=== PATIENT | male | born 1985 | race Caucasian/White ===

== ENCOUNTER 2017-06-29 10:28 | Outpatient (CLI) | payer OTHER ==
[2017-06-29 13:16] LABS: Hematocrit 43.3 % (42.0-52.0); Mean Platelet Volume 6.7 fL (7.4-10.4); Red Blood Cell (RBC) Count 4.28 mill/uL (4.70-6.10); White Blood Cell (WBC) Count 9.5 thou/uL (4.8-10.8)
[2017-06-29 13:25] LABS: Bilirubin Negative (Negative); Blood, Urine Negative (Negative); Glucose, Urine (Dipstick) Negative (Negative); Ketone, Urine Negative (Negative); Nitrite Negative (Negative); Protein, Urine (Dipstick) Negative (Neg-Trace); Urobilinogen 0.2 mg/dL (0.2-1.0)
[2017-06-29 13:30] LABS: Bacteria/HPF None Seen HPF (None Seen); Hyaline Casts/LPF 0-3 HYALINE CAST LPF (0-3 Hyaline); RBC/HPF 0-3 HPF (0-3); Squamous Epithelial 0-3 HPF (0-3); WBC/HPF None Seen HPF (0-3)
[2017-06-29 13:40] LABS: PTT 30.5 SEC (22.9-36.1); Prothrombin Time 13.9 SEC (12.0-14.7)
[2017-06-29 13:42] LABS: Anion Gap 10 mmol/L (10-20); BUN (Urea Nitrogen) 15 mg/dL (8.9-20.6); Calc. Creatinine Clearance 0 mL/min (70-130); Calcium 9.4 mg/dL (7.8-10.44); Carbon Dioxide 30 mmol/L (22-29); Chloride 102 mmol/L (98-107); Estimated GFR-MDRD 88
== END 2017-06-29 10:29 | disposition home or self-care (01) ==
LOC: LABBT 10:28
PROVIDERS: ATTEND Urology
DX: Z01.818 Encounter for other preprocedural examination (principal); N49.2 Inflammatory disorders of scrotum
CPT/HCPCS: 80048; 81001; 85027; 85610; 85730; 87086

== ENCOUNTER 2017-07-01 05:47 | Day surgery (SDC) | payer OTHER ==
[2017-06-29 11:03] VITALS: BMI 43.5
[2017-07-01] MEDS ORDERED: Gentamicin 80 MG/2 ML VIAL ONE (06:58)
[2017-07-01] MEDS ORDERED: Bupivacaine 0.25% HCL 30 ML VIAL ONE (08:55)
[2017-07-01] MEDS ORDERED: Midazolam HCl 2 mg/2 ml Vial ONE (09:05)
[2017-07-01] MEDS ORDERED: Fentanyl 100 MCG/2 ML VIAL ONE ×2 (09:05→11:37)
[2017-07-01] MEDS ORDERED: Lidocaine 2% PF 10 ML AMP (For Epidural Use) ONE (09:32)
[2017-07-01] MEDS ORDERED: Propofol 200 MG/20 ML VIAL ONE (09:32)
--- NOTE | 2017-07-01 11:39 | OP ---
DATE OF PROCEDURE: 07/01/2017 SERVICE: Urology. SURGEON: Alexy Veliz M.D. PREOPERATIVE DIAGNOSIS: Scrotal abscess. POSTOPERATIVE DIAGNOSIS: Scrotal cellulitis with orchitis. PROCEDURE PERFORMED: Scrotal exploration and debridement of infected tissue. INDICATIONS FOR PROCEDURE: Rigo is a 32-year-old white male with Down's syndrome who initially pr esented to me approximately 2 weeks ago with scrotal cellulitis and significant induration of his sc rotal wall, testicle, and cord. He had initially been placed on Bactrim by his primary care physici an and then it had been switched to clindamycin for further antibiotic coverage as he was not respon ding. I recommended continuation of the clindamycin for at least a week or two to see if he would h ave improvement of his infection. The cellulitis did clear significantly on the surrounding scrotal skin, but he continued to have what looked like a fluid collection just under the skin. There was pus able to be expressed from this. As such, I felt that an I\T\D with removal of infected tissue w ould be in the patient's best interest to help expedite recovery and avoid possible Daniel's gangr don. The patient is a diabetic. Risks and benefits of the surgery were discussed with legal guardi ans who agreed to the procedure. DESCRIPTION OF PROCEDURE: After identification of armband and verification of consent, the patient was brought back to the operating room where he underwent general anesthesia with an LMA. He was th en placed in a dorsal lithotomy position and prepped and draped in the usual sterile fashion. After appropriate timeout, an incision was made just over the areas of maximum induration and fluctuance. There was actually a minimal amount of purulent tissue which was removed, but there was a signific ant amount of indurated tissue within the scrotal wall. There were pockets of purulence located in between these areas and the central area of the granulation tissue was necrotic with approximately 2 -3 mL of purulent fluid. This was cultured with a swab and sent for microbiology. I felt to expedi te the healing process as well as create a cavity to pack from wet to dry. It would be beneficial t o remove the granulation tissue. The skin was undermined and the granulation tissue was excised usi ng the Bovie electrocautery. Care was taken to try and avoid the spermatic cord as well as the test icle to avoid orchiectomy or spermatic cord removal at this time, although that may be a necessary s tep in the future. The granulation tissue is completely excised and all the inflammatory tissue yovani t was visible was removed leaving a cavity within the scrotum which would be easy to pack at a later point. A small injury was made to the tunica albuginea with exposed seminiferous tubules. This wa s closed using a 2-0 Vicryl and bringing over the surrounding the spermatic fascia on top. This was likely occurred secondary to the dense amount of inflammation and adherence of the tunica vaginalis and spermatic fascias and dartos tissues being all fused together with significant inflammation. U pipo completion, all hemostasis was achieved with electrocautery. The cord was uninjured and the avel ority of the testicle was intact. Again the cord and testicle are extremely indurated, but this may be inflammatory, rather than infectious. If this fails to resolve and the patient continues to have symptoms and pain, he may require later orchiectomy and spermatic cord removal which we will have t o be done at a later date. As of now, the area was washed copiously with peroxide and then irrigate d with normal saline. The cavity which created was packed with moist gauze and skin injected with 0 .25% Marcaine plain. A cord block was also performed with 0.25% Marcaine plain. The scrotal fluffs were then applied onto the surface and a jockstrap applied. The patient was then awakened and take n to PACU for recovery in stable condition. COMPLICATIONS: Small injury to the testicle with exposed seminiferous tubules which were repaired. Patient ultimately may require an orchiectomy, but for now, we are going to give him the best chanc e to try and keep his testicles unless they continue to remain inflamed or infected. ESTIMATED BLOOD LOSS: 75 mL. RETAINED TUBES AND DRAINS: None. SPECIMENS: Inflamed granulation and infected tissue sent for culture and routine pathology as well as culture swab sent for microbiology. DISPOSITION: The patient will be discharged home and follow up with me tomorrow for instruction for wound care teaching.
[2017-07-01] MEDS ORDERED: traMADol HCl 50 MG TAB ONE (13:29)
== END 2017-07-01 13:52 | disposition home or self-care (01) ==
LOC: SDC 05:47
PROVIDERS: ATTEND Urology
PROC: 0HBAXZZ Excision of Inguinal Skin, External Approach (ICD-10-PCS; principal; 2017-07-01)
DX: N49.2 Inflammatory disorders of scrotum (principal); Q90.9 Down syndrome, unspecified; E11.9 Type 2 diabetes mellitus without complications; I10 Essential (primary) hypertension; M10.9 Gout, unspecified; E07.9 Disorder of thyroid, unspecified; Z79.84 Long term (current) use of oral hypoglycemic drugs; Z79.899 Other long term (current) drug therapy; Z88.5 Allergy status to narcotic agent; Z88.8 Allergy status to other drugs, medicaments and biological substances; Z87.81 Personal history of (healed) traumatic fracture; Z82.3 Family history of stroke
CPT/HCPCS: 87070; 87076; 87077; 87186; 87205; 88304; 96374; J1580; J2001; J2250; J2704; J3010; S0020

== ENCOUNTER 2018-03-07 08:12 | Outpatient (CLI) | payer OTHER ==
[2018-03-07 09:49] LABS: Band 2 % (5-11); Hemoglobin 14.4 g/dL (14.0-18.0); Lymphocytes 51 % (21-51); MDiff Complete? YES; Mean Corpuscular HGB CONC 33.1 g/dL (32.0-36.0); Mean Corpuscular Hemoglobin 33.3 pg (27.0-31.0); Mean Platelet Volume 6.3 fL (7.4-10.4); Monocytes 6 % (0-10); Neutrophil 41 % (42-75); PLT Morphology Comment Appears Adequate; Platelet Count 236 thou/uL (130-400); RBC Distribution Width 14.2 % (11.5-14.5); Red Blood Cell (RBC) Count 4.32 mill/uL (4.70-6.10); White Blood Cell (WBC) Count 6.8 thou/uL (4.8-10.8)
[2018-03-07 10:30] LABS: Anion Gap 9 mmol/L (10-20); BUN (Urea Nitrogen) 26 mg/dL (8.9-20.6); Calc. Creatinine Clearance 0 mL/min (70-130); Calcium 9.2 mg/dL (7.8-10.44); Carbon Dioxide 31 mmol/L (22-29); Chloride 101 mmol/L (98-107); Estimated GFR-MDRD 87; Glucose 90 mg/dL (70-105); Potassium 4.2 mmol/L (3.5-5.1); Sodium 137 mmol/L (136-145)
== END 2018-03-07 08:13 | disposition home or self-care (01) ==
LOC: LABBT 08:12
PROVIDERS: ATTEND Specialist
DX: Z01.812 Encounter for preprocedural laboratory examination (principal); K43.9 Ventral hernia without obstruction or gangrene
CPT/HCPCS: 80048; 85025; 93005; 93010

== ENCOUNTER 2018-03-11 07:15 | Day surgery (SDC) | payer OTHER ==
[2018-03-07 08:33] VITALS: BMI 39.9
--- NOTE | 2018-03-07 09:21 | HP ---
HISTORY OF PRESENT ILLNESS: Rigo Morillo, a 32-year-old male with Down's. The patient has lost 160 pounds intentionally over the past years with changes in his diet and exercise. Family states he fee ls much better. He is much more active since successful weight loss. He has a supraumbilical ventra l hernia that is bothersome to him. The plan is for robotic ventral hernia repair with mesh as an ou tpatient. The patient also has a large pannus and they are interested in panniculectomy/abdominoplasty as this is bothersome to the patient. I have referred him to Dr. Epifanio Santoro to discuss that and that can b e considered and performed as a separate procedure, separate anesthesia. ALLERGIES: LISINOPRIL and HYDROCODONE causes hallucinations. TOBACCO AND ALCOHOL: None. PAST SURGICAL HISTORY: Right scrotal abscess in the past. PAST MEDICAL HISTORY: Diabetes mellitus type 2, hypertension, Down's syndrome, hyperlipidemia, sleep apnea on CPAP, chronic venous insufficiency followed by Dr. Napier. PRIMARY CARE PHYSICIAN: Dr. Richter. MEDICATIONS: Metformin 500 mg b.i.d., allopurinol 300 mg a day, hydrochlorothiazide 12.5 mg daily, l evothyroxine 100 mcg a day, iron 65 mg a day, vitamin D daily, folic acid daily. PHYSICAL EXAMINATION: VITAL SIGNS: 220 pounds, 62 inches, 40 BMI, 100/60, 62, 99 degrees. HEAD, EYES, EARS, NOSE AND THROAT: Unremarkable. LUNGS: Clear to auscultation. CARDIAC: Regular rate and rhythm without murmur or gallop. ABDOMEN: Soft, nontender. Supraumbilical hernia mass that I cannot reduce. It does not seem to be tender. There is a soft tissue palpable hernia mass that is approximately about 6-8 cm in diameter. It is fatty in composition. When supine, I cannot reduce it. EXTREMITIES: Venous support stockings in place. ASSESSMENT AND PLAN: 1. Ventral hernia. We will plan robotic repair with mesh. Risk of infection, bleeding, reoperation , recurrence of hernia discussed. The possibility of absent hernia in which case soft tissue mass wi ll be excised. 2. Down's syndrome. 3. Diabetes mellitus type 2. 4. Hypertension. 5. Morbid obesity, although has lost 160 pounds intentionally, which will improve the results of any hernia repair endeavors.
[2018-03-11] MEDS ORDERED: Ketorolac Tromethamine 30 MG/ML VIAL ONE (07:28)
[2018-03-11] MEDS ORDERED: CEFAZOLIN/Water 2 GM/20 ML SYRINGE ONE (07:28)
[2018-03-11] MEDS ORDERED: Bupivacaine/Epinephrine 0.25% 30 ML VIAL ONE (11:09)
[2018-03-11] MEDS ORDERED: Midazolam HCl 2 mg/2 ml Vial ONE (11:10)
[2018-03-11] MEDS ORDERED: Fentanyl 100 MCG/2 ML VIAL ONE ×2 (11:13→14:40)
--- NOTE | 2018-03-11 14:21 | OP ---
DATE OF PROCEDURE: 03/11/2018 PREOPERATIVE DIAGNOSIS: Ventral hernia incarcerated with omentum. POSTOPERATIVE DIAGNOSIS: Ventral hernia incarcerated with omentum. PROCEDURE: Robotic endoscopic reduction of incarcerated omentum. Repair of ventral hernia, 4 [address] ect located above the umbilicus, 11 cm round mesh cut down to 9 cm diameter, reinforcement of fascial closure. SURGEON: Dr. Luis Daniel oPlanco. ANESTHESIA: General. Local 0.5% Marcaine with epinephrine, 30 mL PROCEDURE IN DETAIL: The patient was taken to the operating room where under general anesthesia, abd omen was prepped with ChloraPrep, draped in routine fashion. Local anesthetic infiltrated into the s kin and subcutaneous tissue about each port site. Bilateral subcostal far lateral incision made and subxiphoid incision made and pneumoperitoneum established with a Veress needle, replacing it with an 11-mm port and the laparoscope inserted. Remainder of the subcostal ports placed under laparoscopic visualization. There were 8 mm ports placed. Incarcerated omentum noted in the ventral hernia above the umbilicus. Falciform ligament taken down to facilitate visualization. The cautery energy sourc e used. Good hemostasis noted. Incarcerated omental contents dissected free from the hernia sac red uced. Hemostasis gained with the cautery. The fascial defect was closed with continuous suture of 0 V-Loc suture, incorporating bites of the hernia sac for partial closure. Once this was completed, a s pneumoperitoneum had been reduced to 10 mmHg prior, round Ventralight mesh placed intra-abdominally . The coated side placed against the viscera held in place with a tacking suture and circumferential ly the mesh secured to the abdominal wall with continuous suture of 3-0 V-Loc. Once this was complet ed, all sutures and needles removed. Good hemostasis noted. Using GraNee needle 0 Vicryl suture use d to approximate the fascia at the 11 mm port site subxiphoid. Pneumoperitoneum reduced. All skin i ncisions approximated with continuous suture of 4-0 Monocryl and DermaGlue applied. The patient wes rated the procedure well.
[2018-03-11] MEDS ORDERED: traMADol HCl 50 MG TAB ONE ×2 (15:58→16:58)
== END 2018-03-11 18:35 | disposition home or self-care (01) ==
LOC: SDC 07:15
PROVIDERS: ATTEND Specialist
PROC: 0WUF4JZ Supplement Abdominal Wall with Synthetic Substitute, Percutaneous Endoscopic Approach (ICD-10-PCS; principal; 2018-03-11)
DX: K43.6 Other and unspecified ventral hernia with obstruction, without gangrene (principal); Q90.9 Down syndrome, unspecified; E11.9 Type 2 diabetes mellitus without complications; I10 Essential (primary) hypertension; E78.5 Hyperlipidemia, unspecified; I87.2 Venous insufficiency (chronic) (peripheral); E66.01 Morbid (severe) obesity due to excess calories; Z68.39 Body mass index [BMI] 39.0-39.9, adult; Z79.82 Long term (current) use of aspirin; Z79.84 Long term (current) use of oral hypoglycemic drugs; Z79.899 Other long term (current) drug therapy; Z88.5 Allergy status to narcotic agent; Z88.8 Allergy status to other drugs, medicaments and biological substances; Z99.89 Dependence on other enabling machines and devices
CPT/HCPCS: 96374; J0131; J1885; J2250; J3010

== ENCOUNTER 2018-06-14 18:05 | Day surgery (SDC) | payer MEDICARE, MEDICAID ==
[~2018-06-14 18:05] MED LIST: Dexamethasone 20 MG/5 ML VIAL ONE; Ondansetron HCl/PF 4 MG/2 ML Vial ONE; PROPOFOL 200 MG/20 ML VIAL ONE; Succinylcholine Chloride 20 MG/ML 10 ml SYRINGE FS ONE
[2018-06-14] MEDS ORDERED: Ondansetron HCl/PF 4 MG/2 ML Vial ONE (18:36)
[2018-06-14] MEDS ORDERED: diphenhydrAMINE 12.5 MG/5 ML UDCUP ONE ×3 (19:24→19:28)
[2018-06-14] MEDS ORDERED: Famotidine/PF 20 mg/2ml Vial ONE (19:31)
--- NOTE | 2018-06-15 02:18 | OP ---
DATE OF PROCEDURE: 06/14/2018 PROCEDURE: Esophagogastroduodenoscopy (diagnostic). INDICATION FOR PROCEDURE: Esophageal food impaction/foreign body of the esophagus. DESCRIPTION OF PROCEDURE: After the risks and benefits of the procedure were explained to the patien t's surrogate (mother and father) including risks of infection, bleeding, perforation, reaction to an esthesia, aspiration and/or pain, informed consent was obtained. The patient was then taken to the e ndoscopy suite where general anesthesia with endotracheal tube intubation was performed. Once the pa tient was adequately sedated and intubation was complete, the standard gastroscope was introduced int o the mouth with intubation of the esophagus, stomach and the proximal small intestine with the findi ngs listed below. The patient tolerated the procedure well with no immediate perioperative complicat ions. FINDINGS: ESOPHAGUS: A circumferential ring of increased mucosal erythema as well as mild erosion was seen in the proximal esophagus at approximately 20 cm just past the upper esophageal sphincter. There was no evidence of overt ulceration within this region and it was easily traversed with the standard gastro scope. However, just distal to this was a 1.5 to 2 cm patch of salmon-colored mucosa consistent with an inlet patch. There was no evidence of biologically active tissue. Otherwise, normal-appearing m ucosa was seen both in the mid and distal esophagus. Both the diaphragmatic pinch and GE junction we re well seen at 37 cm past the incisors. STOMACH: Normal-appearing mucosa was seen in the gastric cardia, fundus, body, greater curvature, an d incisura. 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 Otherwise, there was no evidence of er osions, ulcerations, mass lesions or active/recent bleeding. DUODENUM: Normal-appearing mucosa was seen in both the duodenal bulb and second portion of the duode num. There was no evidence of erosions, ulcerations, mass lesions or active/recent bleeding. IMPRESSION: 1. An area of circumferential mucosal erythema and possible mild stricture formation seen in the pro ximal esophagus. That was not intervened upon during this examination due to recent food impaction a nd increased risk of perforation. 2. A 1.5 to 2 cm inlet patch in the proximal esophagus. 3. 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 RECOMMENDATIONS: 1. We would have the patient follow up in the GI clinic within 3 or 4 weeks of discharge for reevalu ation of dysphagia and possible repeat upper endoscopy for esophageal stricture. 2. Strongly advised the patient to adequately chew his food before swallowing. 3. Could consider PPI administration given the presence of an inlet patch and possible stricture miladys rby indicating possible biologically active tissue. 4. Patient can be discharged to home with followup in the GI clinic as above.
--- NOTE | 2018-06-15 02:24 | HP ---
DATE OF CONSULTATION: 06/14/2018 REASON FOR CONSULTATION: Foreign body of the esophagus. CONSULTING PHYSICIAN: Haylee Messer D.O. HISTORY OF PRESENT ILLNESS: The patient is a 33-year-old male with past medical history of hypertens ion, diabetes, obstructive sleep apnea, hypothyroidism, gout, peripheral vascular disease and Down sy ndrome presenting with complaints of dysphagia. His parents state that he was in his usual state of health until earlier this evening at around 5:45 p.m. He was eating pork and suddenly had the sensat ion that the food was stuck and did not further go down. Attempts at drinking liquid and inducing vo miting were unsuccessful to dislodge the food bolus. Shortly after the impaction of the food bolus, he began to have difficulty tolerating his own secretions and when seen at bedside was initially had an emesis bag full of saliva. Other than complaints of dysphagia this evening, he currently denies a ny nausea, vomiting, fevers, chills, abdominal pain, chest pain, weight loss, diarrhea, odynophagia o r constipation. When seen at the ER, he was given a fluid challenge as well as administration of glu cagon, both of which were unsuccessful. Of note, per the patient's parents, they state that he has been having difficulty swallowing on numer ous different occasions with most recent difficulties eating salad earlier this week with increased c oughing and gagging with ingestion. REVIEW OF SYSTEMS: A 10-category review of systems was obtained with all responses negative except f or the pertinent positives as listed in the HPI. PAST MEDICAL HISTORY: As per HPI. PAST SURGICAL HISTORY: Umbilical hernia repair, testicular abscess I&D, right elbow surgery. FAMILY HISTORY: Denies any GI malignancies. SOCIAL HISTORY: Denies any tobacco, alcohol or illicit drug use. OUTPATIENT MEDICATIONS: Allopurinol 300 mg daily, hydrochlorothiazide 50 mg daily, metformin 500 mg b.i.d., levothyroxine 100 mcg daily, iron 65 mg daily, and folic acid 20 mg daily. ALLERGIES: HYDROCODONE, VALIUM, and LISINOPRIL. PHYSICAL EXAMINATION: VITAL SIGNS: No vital signs were entered in the computer for review. GENERAL: The patient was lying in bed in no acute distress, alert and oriented x3. HEENT: No scleral icterus noted. NECK: Supple, no JVD noted. CARDIOVASCULAR: Regular rate and rhythm with no discernible murmurs, gallops or rubs. RESPIRATORY: Clear to auscultation bilaterally with no discernible wheezes or rales. ABDOMEN: Normoactive bowel sounds, soft, nontender, nondistended. EXTREMITIES: No cyanosis, clubbing or edema. LABORATORY DATA: No current labs are available for review. IMAGING DATA: No current GI imaging is available for review. ASSESSMENT AND PLAN: The patient is a 33-year-old male with past medical history of hypertension, di abetes, obstructive sleep apnea, hypothyroidism, gout, peripheral vascular disease and Down syndrome presenting with food bolus impaction. Food bolus impaction: Earlier today, the patient was eating dinner and attempted to swallow a piece of pork, but was unable to do so with dysphagia experience afterwards and sensation that the food had gotten stuck. Attempts to force liquid down with water and/or inducing vomiting were unsuccessful. When evaluated in the ER, he was also given glucagon in an attempt to relieve the obstruction and it was also unsuccessful. He does not have any history of esophageal stricture or stenoses, but has be en having increased difficulty with dysphagia characterized as increased coughing and gagging with in gestion of solid foods. However, reevaluation of the patient later in the evening yielded that he wa s able to tolerate his secretions much better and no longer needed the use of the emesis bag at [facility] in order to contain secretions and he did endorse the sensation of the food had passed, but given his increased dysphagia over the last week and the esophageal food impaction a partial impaction coul d still be present with allowing secretions to pass. RECOMMENDATIONS: 1. Would make the patient n.p.o. in preparation for procedure. 2. Would plan for urgent EGD later on tonight for evaluation of the esophagus and stomach and possib le release of obstruction from formed food bolus. 3. Further recommendations to follow upper endoscopy.
== END 2018-06-15 01:08 | disposition home or self-care (01) ==
LOC: ERS 18:05 → SDC/OP 23:53
PROVIDERS: ATTEND Internal Medicine
PROC: 0DJ08ZZ Inspection of Upper Intestinal Tract, Via Natural or Artificial Opening Endoscopic (ICD-10-PCS; principal; 2018-06-14)
DX: T18.128A Food in esophagus causing other injury, initial encounter (principal); I10 Essential (primary) hypertension; E11.9 Type 2 diabetes mellitus without complications; G47.33 Obstructive sleep apnea (adult) (pediatric); E03.9 Hypothyroidism, unspecified; M10.9 Gout, unspecified; Z79.84 Long term (current) use of oral hypoglycemic drugs; Z79.899 Other long term (current) drug therapy; Z88.8 Allergy status to other drugs, medicaments and biological substances
CPT/HCPCS: 43235; 96374; 96375; 99285; J1610; J1100; J2405; J2704; S0028

== ENCOUNTER 2022-05-07 12:25 | Emergency (ER) | payer MEDICARE, MEDICAID ==
[~2022-05-07 12:25] MED LIST changes: -Dexamethasone 20 MG/5 ML VIAL ONE; +Iopamidol-370 76% 500 ML 1 ML ONE; -Ondansetron HCl/PF 4 MG/2 ML Vial ONE; -PROPOFOL 200 MG/20 ML VIAL ONE; -Succinylcholine Chloride 20 MG/ML 10 ml SYRINGE FS ONE
[2022-05-07 14:12] LABS: #Lymphocytes 0.8 thou/uL (1.20-3.40); #Monocytes 0.9 thou/uL (0.11-0.59); %Basophils 0.1 % (0.0-1.0); %Eosinophils 0.3 % (0.0-10.0); %Lymphocytes 4.8 % (21.0-51.0); %Monocytes 5.2 % (0.0-10.0); %Neutrophils 89.6 % (42.0-75.0); Mean Corpuscular HGB CONC 32.4 g/dL (32.0-36.0); Mean Corpuscular Hemoglobin 32.4 pg (27.0-31.0); Mean Platelet Volume 6.9 fL (7.4-10.4); Platelet Count 276 thou/uL (130-400); RBC Distribution Width 14.3 % (11.5-14.5); Red Blood Cell (RBC) Count 4.92 mill/uL (4.70-6.10); White Blood Cell (WBC) Count 16.7 thou/uL (4.8-10.8)
[2022-05-07] MEDS ORDERED: Ketorolac Tromethamine 30 MG/ML VIAL ONE ×2 (14:22→14:35)
[2022-05-07] MEDS ORDERED: Ondansetron PF 4 MG/2 ML Vial ONE (14:22)
[2022-05-07 14:45] LABS: ALT (SGPT) 20 U/L (8-55); AST (SGOT) 21 U/L (5-34); Albumin 4.2 g/dL (3.5-5.0); Alkaline Phosphatase 64 U/L (40-110); Anion Gap 20 mmol/L (10-20); BUN (Urea Nitrogen) 20 mg/dL (8.9-20.6); Bilirubin, Total 0.9 mg/dL (0.2-1.2); Calc. Creatinine Clearance 0 mL/min (70-130); Calcium 9.4 mg/dL (7.8-10.44); Carbon Dioxide 23 mmol/L (22-29); Chloride 100 mmol/L (98-107); Estimated GFR 80; Globulin 3.4 g/dL (2.4-3.5); Glucose 163 mg/dL (70-105); Lipase 14 U/L (8-78); Potassium 4.4 mmol/L (3.5-5.1); Protein, Total 7.6 g/dL (6.0-8.3); Sodium 139 mmol/L (136-145)
[2022-05-07] MEDS ORDERED: Lorazepam (BATCHED) 2 MG/ML SYR ONE (15:10)
[2022-05-07 16:24] LABS: Bilirubin Negative (Negative); Blood, Urine Negative (Negative); Clarity Clear (Clear); Glucose, Urine (Dipstick) Normal (Negative); Ketone, Urine Trace mg/dL (Negative); Leukocyte Negative Leu/uL (Negative); Nitrite Negative (Negative); Protein, Urine (Dipstick) 10 mg/dL (Neg-Trace); Specific Gravity, Urine 1.029 (1.002-1.036); Urobilinogen Normal mg/dL (Less than 2)
== END 2022-05-07 17:03 | disposition home or self-care (01) ==
LOC: ERS 12:25
DX: D72.829 Elevated white blood cell count, unspecified (principal); R10.84 Generalized abdominal pain; M10.9 Gout, unspecified; E11.9 Type 2 diabetes mellitus without complications; I10 Essential (primary) hypertension; E03.9 Hypothyroidism, unspecified; D64.9 Anemia, unspecified; Z79.899 Other long term (current) drug therapy; Z79.84 Long term (current) use of oral hypoglycemic drugs; Z79.82 Long term (current) use of aspirin
CPT/HCPCS: 74177; 76705; 80053; 81003; 83690; 85025; 96374; 96375; 99284; J2060; 36415; J1885; J2405; Q9967

== ENCOUNTER 2022-05-09 14:50 | Emergency (ER) | payer MEDICARE, MEDICAID ==
[2022-05-09 15:40] LABS: Hemoglobin 13.9 g/dL (14.0-18.0); Mean Corpuscular HGB CONC 33.2 g/dL (32.0-36.0); Mean Corpuscular Hemoglobin 33.1 pg (27.0-31.0); Mean Corpuscular Volume 99.9 fL (78.0-98.0); Mean Platelet Volume 6.7 fL (7.4-10.4); Platelet Count 296 thou/uL (130-400); RBC Distribution Width 14.1 % (11.5-14.5); White Blood Cell (WBC) Count 8.2 thou/uL (4.8-10.8)
[2022-05-09 15:56] LABS: Band 1 % (5-11); Eosinophils 3 % (0-10); Lymphocytes 47 % (21-51); MDiff Complete? YES; Monocytes 4 % (0-10); Neutrophil 42 % (42-75); Platelet Morphology Comment Appears Adequate; RBC Morphology Normal; Reactive Lymphocytes 2 % (0-10)
[2022-05-09 16:00] LABS: ALT (SGPT) 15 U/L (8-55); AST (SGOT) 14 U/L (5-34); Albumin 3.7 g/dL (3.5-5.0); Alkaline Phosphatase 52 U/L (40-110); Anion Gap 13 mmol/L (10-20); BUN (Urea Nitrogen) 20 mg/dL (8.9-20.6); Bilirubin, Total 0.4 mg/dL (0.2-1.2); Calc. Creatinine Clearance 0 mL/min (70-130); Calcium 8.9 mg/dL (7.8-10.44); Carbon Dioxide 28 mmol/L (22-29); Chloride 102 mmol/L (98-107); Estimated GFR 86; Globulin 2.8 g/dL (2.4-3.5); Glucose 124 mg/dL (70-105); Potassium 4.1 mmol/L (3.5-5.1); Protein, Total 6.5 g/dL (6.0-8.3); Sodium 139 mmol/L (136-145)
== END 2022-05-09 16:16 | disposition home or self-care (01) ==
LOC: ERS 14:50
DX: R10.9 Unspecified abdominal pain (principal); I10 Essential (primary) hypertension; E11.9 Type 2 diabetes mellitus without complications; E03.9 Hypothyroidism, unspecified; Z79.899 Other long term (current) drug therapy
CPT/HCPCS: 36415; 80053; 85025; 99284